=== PATIENT | female | born 2000 | race Caucasian/White ===

== ENCOUNTER → 2021-08-30 | Outpatient (CLI) | payer OTHER ==
[2021-08-30 17:15] LABS: BASO # 0.02 K/mm3 (0.02-0.10); EOS % 2.2 % (1.0-5.0); HEMATOCRIT 45.9 % (37.0-47.0); HEMOGLOBIN 15.1 g/dL (12.5-16.0); LYMPH# 1.64 K/mm3 (1.50-4.00); MEAN CELL VOLUME 91 fl (78-100); MEAN CORPUSCULAR HEMOGLOBIN 30 pg (27-31); MEAN CORPUSCULAR HGB CONC 33 g/dL (33-37); MEAN PLATELET VOLUME 9.7 fl (7.4-10.4); MONO # 0.35 K/mm3 (0.20-0.80); NEU # 2.42 K/mm3 (1.40-6.50); PLATELET COUNT 263 K/mm3 (130-400); RED BLOOD COUNT 5.04 M/mm3 (4.10-5.30); RED CELL DISTRIBUTION WIDTH 11.7 % (11.5-14.5); WHITE BLOOD COUNT 4.5 K/mm3 (4.8-10.8)
[2021-08-30 17:19] LABS: ALBUMIN 4.7 g/dL (3.5-5.0); POTASSIUM 3.6 mmol/L (3.5-5.1)
[2021-08-30 17:20] LABS: CALCIUM 9.8 mg/dL (8.3-10.5)
[2021-08-30 17:22] LABS: TOTAL PROTEIN 7.6 g/dL (6.4-8.3)
[2021-08-30 17:23] LABS: TOTAL BILIRUBIN 1.4 mg/dL (0.2-1.2)
== END ==
LOC: LAB 16:47
PROVIDERS: Physician Assistant
DX: Z00.00 Encounter for general adult medical examination without abnormal findings (principal); K90.9 Intestinal malabsorption, unspecified

== ENCOUNTER → 2021-12-28 | Outpatient (CLI) | payer OTHER | LOC: RAD 09:44 | DX: M79.652 Pain in left thigh (principal) ==

== ENCOUNTER → 2022-07-25 | Outpatient (CLI) | payer OTHER ==
[2022-07-25 10:55] LABS: BASO # 0.04 K/mm3 (0.02-0.10); EOS # 0.16 K/mm3 (0.04-0.40); EOS % 3.7 % (1.0-5.0); HEMATOCRIT 43.5 % (37.0-47.0); HEMOGLOBIN 14.2 g/dL (12.5-16.0); LYMPH# 1.23 K/mm3 (1.50-4.00); MEAN CELL VOLUME 91 fl (78-100); MEAN CORPUSCULAR HEMOGLOBIN 30 pg (27-31); MEAN CORPUSCULAR HGB CONC 33 g/dL (33-37); MEAN PLATELET VOLUME 9.7 fl (7.4-10.4); NEU # 2.62 K/mm3 (1.40-6.50); PLATELET COUNT 222 K/mm3 (130-400); RED BLOOD COUNT 4.79 M/mm3 (4.10-5.30); RED CELL DISTRIBUTION WIDTH 12.3 % (11.5-14.5); WHITE BLOOD COUNT 4.4 K/mm3 (4.8-10.8)
[2022-07-25 11:02] LABS: ALBUMIN 4.7 g/dL (3.5-5.0); POTASSIUM 3.9 mmol/L (3.5-5.1)
[2022-07-25 11:03] LABS: CALCIUM 9.4 mg/dL (8.3-10.5)
[2022-07-25 11:05] LABS: TOTAL PROTEIN 7.3 g/dL (6.4-8.3)
[2022-07-25 11:07] LABS: TOTAL BILIRUBIN 0.8 mg/dL (0.2-1.2)
[2022-07-26 13:25] LABS: ANA SCREEN with REFLEX Negative (Negative)
== END ==
LOC: LAB 10:33
PROVIDERS: Physician Assistant
DX: Z13.220 Encounter for screening for lipoid disorders (principal); Z13.29 Encounter for screening for other suspected endocrine disorder; F41.8 Other specified anxiety disorders; M25.20 Flail joint, unspecified joint; K90.9 Intestinal malabsorption, unspecified